=== PATIENT | female | born 1970 | race Caucasian/White ===

== ENCOUNTER → 2018-05-17 | Outpatient (CLI) | payer BC ==
--- NOTE | 2018-05-24 11:11 | MM ---
Reason for exam: screening (asymptomatic). Last mammogram was performed 3 years ago. History: Patient is nulliparous. Family history of breast cancer in paternal grandmother and breast cancer in 2 paternal aunts. MG Screening Mammo w CAD Bilateral CC and MLO view(s) were taken. Prior study comparison: May 18, 2015, bilateral MG screening mammo w CAD. March 02, 2012, bilateral digital screening mammo w/CAD. The breast tissue is heterogeneously dense. This may lower the sensitivity of mammography. No suspicious abnormality. No significant new finding since 2011. ASSESSMENT: Negative, BI-RAD 1 RECOMMENDATION: Routine screening mammogram of both breasts in 1 year.
== END | disposition home or self-care (01) ==
LOC: RADMAMWWP 07:57
PROVIDERS: ATTEND Family Medicine
DX: Z12.31 Encounter for screening mammogram for malignant neoplasm of breast (principal)
CPT/HCPCS: 77067

== ENCOUNTER → 2018-05-29 | Outpatient (CLI) | payer BC ==
--- NOTE | 2018-05-29 08:58 | XR ---
EXAMINATION TYPE: XR Hip Limited RT DATE OF EXAM: 05/29/2018 COMPARISON: NONE HISTORY: Pain TECHNIQUE: 2 views submitted FINDINGS: There is no evidence of erosive change or acute fracture. No erosive changes. IMPRESSION: 1. No evidence of acute fracture or dislocation.
== END | disposition home or self-care (01) ==
LOC: RADXRMAIN 08:22
PROVIDERS: ATTEND Family Medicine
DX: M25.551 Pain in right hip (principal)
CPT/HCPCS: 73501

== ENCOUNTER → 2018-06-08 | Outpatient (CLI) | payer BC ==
--- NOTE | 2018-06-08 09:51 | XR ---
EXAMINATION TYPE: XR ankle complete bilateral DATE OF EXAM: 06/08/2018 COMPARISON: NONE HISTORY: Pain FINDINGS: Three views of the ankle were obtained bilaterally and demonstrate the ankle mortise to be intact and symmetric bilaterally. The joint spaces are preserved. No erosive changes. Mineralization preserve d. The osseous structures are intact. Plantar calcaneal spur noted on the left. IMPRESSION: 1. Left-sided plantar calcaneal spur.
--- NOTE | 2018-06-08 09:53 | XR ---
EXAMINATION TYPE: XR cervical spine comp DATE OF EXAM: 06/08/2018 COMPARISON: NONE HISTORY: Pain TECHNIQUE: Four views are submitted. FINDINGS: The odontoid is intact. There are no compression deformities. The prevertebral soft tissue structur es are within normal limits. There is loss of disc space and hypertrophic spurring C5-6 and C6-C7. F acet arthropathy at levels C4-T1. Foraminal encroachment noted at C4-C7 bilaterally. IMPRESSION: 1. Multilevel degenerative disc disease and spondylosis with bilateral foraminal encroachment level C 4-C7. Follow-up MRI recommended.
--- NOTE | 2018-06-08 10:11 | XR ---
EXAMINATION TYPE: XR wrist complete BILATERAL DATE OF EXAM: 06/08/2018 COMPARISON: NONE HISTORY: Pain TECHNIQUE: Four views submitted bilaterally. FINDINGS: The osseous structures are intact. Mild narrowing of the radiocarpal joint. There is no acute fractur e or dislocation. No erosive changes. IMPRESSION: 1. No definite acute fracture or dislocation if symptoms persist, follow-up study in 7 to 10 days wo uld be suggested
--- NOTE | 2018-06-08 10:13 | XR ---
EXAMINATION TYPE: XR foot complete bilateral DATE OF EXAM: 06/08/2018 COMPARISON: NONE HISTORY: Pain TECHNIQUE: Three views are submitted of each foot. FINDINGS: The osseous structures are intact. There is no acute fracture or dislocation. Joint spaces are p reserved. No erosive changes. IMPRESSION: 1. No acute fracture or dislocation. If symptoms persist, follow-up exam in 7 to 10 days could be ob tained.
--- NOTE | 2018-06-08 10:15 | XR ---
EXAMINATION TYPE: XR hand complete bilateral DATE OF EXAM: 06/08/2018 COMPARISON: NONE HISTORY: Pain TECHNIQUE: Three views are submitted. FINDINGS: The osseous structures are intact. The joint spaces are preserved and there is no acute fracture or dislocation. No erosive changes. Mineralization is preserved. IMPRESSION: 1. No definite acute fracture or dislocation if symptoms persist, follow-up study in 7 to 10 days wo uld be suggested
--- NOTE | 2018-06-08 10:49 | XR ---
EXAM TYPE: LUMBAR SPINE X RAY SERIES COMPARISON: NONE HISTORY: Pain TECHNIQUE: 4 views are submitted. FINDINGS: Alignment is anatomic. The pedicles are intact. The transverse processes are intact and degenerativ e disc disease L4-5 and L5-S1.. Facet arthropathy L4-L5 and L5-S1 with grade 1 anterolisthesis L4 on L5. IMPRESSION: 1. Advanced facet arthropathy lower lumbar spine with grade 1 anterolisthesis L4 on L5. Multilevel de generative disc disease.
--- NOTE | 2018-06-08 10:50 | XR ---
EXAMINATION TYPE: XR pelvis AP view DATE OF EXAM: 06/08/2018 COMPARISON: NONE HISTORY: Pain The osseous structures are intact and the joint spaces are preserved. No acute fracture is seen. Vi sualized bowel gas pattern is nonspecific. Calcifications in the pelvis are noted. There is mild con centric narrowing of the hip joints bilaterally. No erosive changes. Mineralization preserved. SI marck nts symmetric. No erosive changes. IMPRESSION: 1. Mild hip arthropathy with hypertrophic changes involving the lateral margin of acetabulum compatib le mild arthritic changes. Femoral acetabular impingement in the differential diagnosis.
== END | disposition home or self-care (01) ==
LOC: RADXRMAIN 07:10
PROVIDERS: ATTEND Physician Assistant Medical
DX: M77.32 Calcaneal spur, left foot (principal); M43.16 Spondylolisthesis, lumbar region; M51.36 Other intervertebral disc degeneration, lumbar region; M47.812 Spondylosis without myelopathy or radiculopathy, cervical region; M46.96 Unspecified inflammatory spondylopathy, lumbar region; M50.30 Other cervical disc degeneration, unspecified cervical region; M13.0 Polyarthritis, unspecified
CPT/HCPCS: 72050; 72110; 72170

== ENCOUNTER → 2019-05-20 | Outpatient (CLI) | payer BC ==
--- NOTE | 2019-05-21 08:08 | MM ---
Reason for exam: screening (asymptomatic). Last mammogram was performed 1 year ago. History: Patient is nulliparous. Family history of breast cancer in paternal grandmother and breast cancer in 2 paternal aunts. Physical Findings: A clinical breast exam by your physician is recommended on an annual basis and results should be correlated with mammographic findings. MG Screening Mammo w CAD Bilateral CC and MLO view(s) were taken. Prior study comparison: May 17, 2018, bilateral MG screening mammo w CAD. May 18, 2015, bilateral MG screening mammo w CAD. There are scattered fibroglandular densities. There is no discrete abnormality. No significant changes when compared with prior studies. ASSESSMENT: Negative, BI-RAD 1 RECOMMENDATION: Routine screening mammogram of both breasts in 1 year.
== END | disposition home or self-care (01) ==
LOC: RADMAMWWP 07:36
PROVIDERS: ATTEND Family Medicine
DX: Z12.31 Encounter for screening mammogram for malignant neoplasm of breast (principal)
CPT/HCPCS: 77067

== ENCOUNTER → 2020-07-17 | Outpatient (CLI) | payer BC ==
--- NOTE | 2020-07-21 13:42 | MM ---
Reason for exam: screening (asymptomatic). Last mammogram was performed 1 year and 2 months ago. History: Patient is nulliparous. Family history of breast cancer in paternal grandmother and breast cancer in 2 paternal aunts. Physical Findings: A clinical breast exam by your physician is recommended on an annual basis and results should be correlated with mammographic findings. MG Screening Mammo w CAD Bilateral CC and MLO view(s) were taken. Prior study comparison: May 20, 2019, bilateral MG screening mammo w CAD. May 17, 2018, bilateral MG screening mammo w CAD. There are scattered fibroglandular densities. No significant changes when compared with prior studies. ASSESSMENT: Negative, BI-RAD 1 RECOMMENDATION: Routine screening mammogram of both breasts in 1 year.
== END | disposition home or self-care (01) ==
LOC: RADMAMWWP 13:47
PROVIDERS: ATTEND Family Medicine
DX: Z12.31 Encounter for screening mammogram for malignant neoplasm of breast (principal); Z80.3 Family history of malignant neoplasm of breast
CPT/HCPCS: 77067

== ENCOUNTER 2020-12-23 10:45 | Day surgery (SDC) | payer BC ==
[2020-12-21 10:17] VITALS: BMI 31.2
[~2020-12-23 10:45] MED LIST: LACTATED RINGERS 1,000 ML IV SCH; LIDOCAINE 1% (10MG/ML) FOR IV START INTRADERMA PRN
[2020-12-23] MEDS ORDERED: LIDOCAINE 1% (10MG/ML) FOR IV START INTRADERMA ONE (11:44)
[2020-12-23 11:47] VITALS: TEMP 97
[2020-12-23] MEDS ORDERED: PROPOFOL 10 MG/ML 20 ML VIAL IV ONE (12:07)
--- NOTE | 2020-12-23 12:18 | P.PCN ---
Date of Procedure: 12/23/20 Procedure(s) Performed: BRIEF HISTORY: Patient is a 50-year-old pleasant white female scheduled for an elective colonoscopy as a part of evaluation of positive cploguard. PROCEDURE PERFORMED: Colonoscopy. PREOPERATIVE DIAGNOSIS: Positive cologuard. IV sedation per Anesthesia. PROCEDURE: After informed consent was obtained, the patient, was brought into the endoscopy unit. IV sedation was administered by Anesthesia under continuous monitoring. Digital rectal examination was normal. Initially the Olympus CF-160 flexible video colonoscope was then inserted in the rectum, gradually advanced into the cecum without any difficulty. Careful examination was performed as the scope was gradually being withdrawn. Ileocecal valve and the appendiceal orifice were visualized and appeared normal. Prep was excellent. Mucosa of the cecum, ascending colon, transverse colon, descending colon, sigmoid colon, and rectum appeared normal. Retroflexion was performed in the rectum and no lesions were seen. The patient tolerated the procedure well. IMPRESSION: Normal-appearing colon from rectum to cecum no evidence of colorectal neoplasia. RECOMMENDATIONS: Findings of this examination were discussed with the patient as well as a family. She was advised to have a repeat screening colonoscopy in 10 years
[2020-12-23 12:48] VITALS: RESP 16
[2020-12-23 12:50] VITALS: BP 112/78; PULSE 87
== END 2020-12-23 13:00 | disposition home or self-care (01) ==
LOC: ORWHC2ENDO 10:45
PROVIDERS: ATTEND Internal Medicine Gastroenterology
DX: R19.5 Other fecal abnormalities (principal); F41.9 Anxiety disorder, unspecified; Z88.2 Allergy status to sulfonamides
CPT/HCPCS: 81025; 45378; J2704

== ENCOUNTER → 2021-08-24 | Outpatient (CLI) | payer BC ==
--- NOTE | 2021-08-24 12:19 | BD ---
EXAMINATION TYPE: Axial Bone Density DATE OF EXAM: 08/24/2021 COMPARISON: NONE CLINICAL HISTORY: Postmenopausal female Height: 4 FT 1O 1/4 IN Weight: 166 FRAX RISK QUESTIONS: Alcohol (3 or more units per day): NO Family History (Parent hip fracture): NO Glucocorticoids (More than 3mos): NO (Ex: prednisone, prednisolone, methylprednisolone, dexamethasone, and hydrocortisone). History of Fracture in Adulthood: NO Secondary Osteoporosis: 1. Type 1 Diabetes: NO 2. Hyperthyroidism: NO 3. Menopause before 45: NO 4. Malnutrition: NO 5. Chronic liver disease: NO Rheumatoid Arthritis: NO Current Tobacco Use: NO RISK FACTORS HISTORY OF: Surgery to Spine/Hip(right/left)/Wrist (right/left): NO Family History of Osteoporosis: YES Active: YES Diet low in dairy products/other sources of calcium: NO Postmenopausal woman: If Premenopausal, do you have irregular periods: LMP SUMMER 2020 STILL SPOTTING ON OCCASION Take estrogen and/or progesterone medications: NO Lost more than 2 inches in height since high school: NO Frequent falls: NO Poor Health: GOOD Hyperparathyroidism: NO Adrenal Insufficiency: NO MEDICATIONS: Additional Medications: NONE Additional History: EXAM MEASUREMENTS: Bone mineral densitometry was performed using the [employer] System. Bone mineral density as measured about the Lumbar spine is: ----- L1-L4(G/cm2): 1.171 T Score Values are as follows: ----- L2: -0.4 ----- L3: -0.5 ----- L4: 0.4 ----- L1-L4: -0.1 BASELINE Bone mineral density about the R hip (g/cm2): 0.938 Bone mineral density about the L hip (g/cm2): 0.948 T Score values are as follows: -----R Neck: -0.7 -----L Neck: -0.6 -----R Total: 0.0 -----L Total: 0.0 BASELINE IMPRESSION: Normal (Values between +1 and -1 indicate normal bone mass). Consider repeating this study in 5 year s or sooner if there is some new clinical indication. NOTE: T-SCORE=SD OF THE YOUNG ADULT MEAN.
--- NOTE | 2021-08-25 11:04 | MM ---
Reason for exam: screening (asymptomatic). Last mammogram was performed 1 year and 1 month ago. History: Patient is nulliparous. Family history of breast cancer in paternal grandmother and breast cancer in 2 paternal aunts. Physical Findings: A clinical breast exam by your physician is recommended on an annual basis and results should be correlated with mammographic findings. MG Screening Mammo w CAD Bilateral CC and MLO view(s) were taken. Prior study comparison: July 17, 2020, bilateral MG screening mammo w CAD. May 20, 2019, bilateral MG screening mammo w CAD. There are scattered fibroglandular densities. There is no discrete abnormality. ASSESSMENT: Negative, BI-RAD 1 RECOMMENDATION: Routine screening mammogram of both breasts in 1 year.
== END | disposition home or self-care (01) ==
LOC: RADMAMWWP 08:16
PROVIDERS: ATTEND Family Medicine
DX: Z12.31 Encounter for screening mammogram for malignant neoplasm of breast (principal); Z80.3 Family history of malignant neoplasm of breast; Z78.0 Asymptomatic menopausal state
CPT/HCPCS: 77067; 77080

== ENCOUNTER → 2022-08-25 | Outpatient (CLI) | payer BC ==
--- NOTE | 2022-08-25 09:27 | MM ---
Reason for Exam: Screening (asymptomatic). Last screening mammogram was performed 12 month(s) ago. Patient History: Menarche at age 12. Patient has no children. Paternal grandmother had breast cancer. Paternal aunt had breast cancer. Paternal aunt had breast cancer. Last menstrual period: 08/17/2022 Risk Values: Tonya 5 year model risk: 1.2%. NCI Lifetime model risk: 9.6%. Prior Study Comparison: 05/20/2019 Bilateral Screening Mammogram, [facility]. 07/17/2020 Bilateral Screening Mammogram, [facility]. 08/24/2021 Bilateral Screening Mammogram, [facility]. Tissue Density: There are scattered fibroglandular densities. Findings: Analyzed By CAD. There is no suspicious group of microcalcifications or new suspicious mass in either breast. No significant change from prior exams. Overall Assessment: Negative, BI-RAD 1 Management: Screening Mammogram of both breasts in 1 year. A clinical breast exam by your physician is recommended on an annual basis and results should be correlated with mammographic findings. Electronically signed and approved by: Dev Moreno D.O.
== END | disposition home or self-care (01) ==
LOC: RADMAMWWP 06:56
PROVIDERS: ATTEND Family Medicine
DX: Z12.31 Encounter for screening mammogram for malignant neoplasm of breast (principal); Z80.3 Family history of malignant neoplasm of breast
CPT/HCPCS: 77067

== ENCOUNTER → 2023-05-25 | Outpatient (CLI) | payer BC ==
--- NOTE | 2023-05-25 13:47 | CT ---
EXAMINATION TYPE: CT abdomen pelvis wo con CT DLP: 813 mGycm, Automated exposure control for dose reduction was used. DATE OF EXAM: 05/25/2023 1:16 PM COMPARISON : none CLINICAL INDICATION:Female, 52 years old with history of R31.9 Hematuria; possible Hematuria, patient states possible diverticulitis, pre menopausal symptoms, possible spotting. Patient states she is no t TECHNIQUE: Standard CT of the abdomen and pelvis without IV or oral contrast. Lack of IV or oral co ntrast limits evaluation of solid and hollow organ viscera. Coronal and sagittal reformats were perfo rmed. FINDINGS: Evaluation is limited due to lack of intravenous and oral contrast. LOWER CHEST: Linear atelectasis within the bilateral lung bases. Elevation the right hemidiaphragm. ABDOMEN LIVER: Unremarkable noncontrast appearance GALLBLADDER AND BILE DUCTS: Unremarkable noncontrast appearance PANCREAS: Unremarkable noncontrast appearance SPLEEN: Unremarkable noncontrast appearance ADRENAL GLANDS: Unremarkable noncontrast appearance. KIDNEYS AND URETERS: No evidence of hydronephrosis or renal calculus. The ureters are unremarkable. PELVIS BLADDER: Unremarkable REPRODUCTIVE: : Unremarkable anteverted uterus. Right ovarian 3.0 cm cystic lesion. ABDOMEN & PELVIS STOMACH AND BOWEL: Stomach and duodenum are unremarkable. No focal bowel wall thickening or surroundi ng inflammatory changes. No diverticula identified. The appendix is within normal limits. No evidence of bowel obstruction. PERITONEUM: No evidence of pneumoperitoneum or free fluid. VASCULATURE: No evidence of aortic aneurysm. Multiple pelvic phleboliths. MUSCULOSKELETAL: No acute osseous abnormalities. Grade 1 anterolisthesis of L4 on L5 without evidence of pars defects. Mild to moderate degenerative disc disease at L4-L5 and L5-S1. LYMPH NODES: No gross evidence for lymphadenopathy. SOFT TISSUE/ABDOMINAL WALL: Unremarkable IMPRESSION: 1. No acute abdominal/pelvic process. No evidence for obstructive uropathy or nephrolithiasis. 2. Right ovarian 3.0 cm cystic lesion which probably represents a follicular cyst. This can be furthe r evaluated with pelvic ultrasound as clinically indicated.
== END | disposition home or self-care (01) ==
LOC: RADCTMAIN 12:50
PROVIDERS: ATTEND Family Medicine
DX: N83.201 Unspecified ovarian cyst, right side (principal); R31.9 Hematuria, unspecified
CPT/HCPCS: 74176

== ENCOUNTER → 2023-06-06 | Outpatient (CLI) | payer BC ==
--- NOTE | 2023-06-07 10:09 | MM ---
Reason for Exam: Clinical finding. Last screening mammogram was performed 9 month(s) ago. Patient History: Menarche at age 12. Patient has no children. Paternal grandmother had breast cancer. Paternal aunt had breast cancer. Paternal aunt had breast cancer. Risk Values: Tonya 5 year model risk: 1.2%. NCI Lifetime model risk: 9.4%. Prior Study Comparison: 04/27/2001 Screening Mammogram, [facility]. 07/17/2020 Bilateral Screening Mammogram, [facility]. 08/24/2021 Bilateral Screening Mammogram, [facility]. 08/25/2022 Bilateral MG screening mammo w CAD, [facility]. Tissue Density: Left: The breast tissue is heterogeneously dense. This may lower the sensitivity of mammography. Findings: Analyzed By CAD. No discrete abnormality including area of concern. Overall Assessment: Incomplete: need additional imaging evaluation, BI-RAD 0 Management: Diagnostic Breast Ultrasound of the left breast. A clinical breast exam by your physician is recommended on an annual basis and results should be correlated with mammographic findings. This exam should not preclude additional follow-up of suspicious palpable abnormalities. Results were given to the patient verbally at the time of exam. Electronically signed and approved by: James Nettles M.D. Radiologis
--- NOTE | 2023-06-07 10:09 | USB ---
Reason for Exam: Clinical finding. Patient History: Menarche at age 12. Patient has no children. Paternal grandmother had breast cancer. Paternal aunt had breast cancer. Paternal aunt had breast cancer. Risk Values: Tonya 5 year model risk: 1.2%. NCI Lifetime model risk: 9.4%. Technique: Method: Targeted. Prior Study Comparison: 07/17/2020 Bilateral Screening Mammogram, [facility]. 08/24/2021 Bilateral Screening Mammogram, [facility]. 08/25/2022 Bilateral MG screening mammo w CAD, [facility]. Findings: The area of palpable concern of the left breast was scanned. Left breast ultrasound demonstrates a 0.6 x 0.3 x 0.5cm hyperechoic lesion, questionable lipoma at 4 o'clock, 12cm from the nipple. Overall Assessment: Benign, BI-RAD 2 Management: Return to routine follow-up (next follow-up: 08/25/2023 for Screening Mammogram) A clinical breast exam by your physician is recommended on an annual basis and results should be correlated with mammographic findings. This exam should not preclude additional follow-up of suspicious palpable abnormalities. Results were given to the patient verbally at the time of exam. Electronically signed and approved by: James Nettles M.D. Radiologis
== END | disposition home or self-care (01) ==
LOC: RADMAMWWP 08:58
PROVIDERS: ATTEND Family Medicine
DX: N63.23 Unspecified lump in the left breast, lower outer quadrant (principal); Z80.3 Family history of malignant neoplasm of breast
CPT/HCPCS: 77061; 77065

== ENCOUNTER → 2023-06-29 | Outpatient (CLI) | payer BC ==
--- NOTE | 2023-06-29 10:42 | US ---
EXAMINATION TYPE: US transvaginal DATE OF EXAM: 06/29/2023 COMPARISON: CLINICAL INDICATION: Female, 52 years old with history of N83.201 OVARIAN CYST; hx ro cyst. Spotting. TECHNIQUE: Transvaginal (TV) Date of LMP: Unknown, G0 EXAM MEASUREMENTS: Uterus: 6.9 x 4.4 x 3.6 cm Endometrial Stripe: 1.6 cm Right Ovary: 3.0 x 2.3 x 1.7 cm Left Ovary: 1.9 x 1.3 x 1.0 cm 1. Uterus: Anteverted Isoechoic lesion in CAREN = 1.3 x 1.2 x 1.3 cm. Anechoic lesion in mid fundal region = 0.6 x 0.6 x 0.3 cm 2. Endometrium: Appears thickened 3. Right Ovary: dominant follicle 4. Left Ovary: wnl 5. Bilateral Adnexa: wnl 6. Posterior cul-de-sac: no free fluid IMPRESSION: Probable leiomyomatous change. Thickened endometrium.
== END | disposition home or self-care (01) ==
LOC: RADUSWWP 08:48
PROVIDERS: ATTEND Family Medicine
DX: N83.201 Unspecified ovarian cyst, right side (principal); R93.89 Abnormal findings on diagnostic imaging of other specified body structures
CPT/HCPCS: 76830

== ENCOUNTER → 2023-08-28 | Outpatient (CLI) | payer BC ==
--- NOTE | 2023-08-28 09:10 | MM ---
Reason for Exam: Screening (asymptomatic). Last screening mammogram was performed 12 month(s) ago. Patient History: Menarche at age 12. Patient has no children. Paternal grandmother had breast cancer. Paternal aunt had breast cancer. Paternal aunt had breast cancer. Risk Values: Tonya 5 year model risk: 1.2%. NCI Lifetime model risk: 9.4%. Prior Study Comparison: 08/24/2021 Bilateral Screening Mammogram, [facility]. 08/25/2022 Bilateral MG screening mammo w CAD, [facility]. 06/06/2023 Left MG 3D diag mammo w/cad LT, [facility]. Tissue Density: There are scattered fibroglandular densities. Findings: Analyzed By CAD. There is no suspicious group of microcalcifications or new suspicious mass. Overall Assessment: Negative, BI-RAD 1 Management: Screening Mammogram of both breasts in [address] [facility] will attempt to contact patient to return for supplemental views and ultrasound if indicated. Patient should continue monthly self-breast exams. A clinical breast exam by your physician is recommended on an annual basis. This exam should not preclude additional follow-up of suspicious palpable abnormalities. Note on Tonya scores and lifetime risk: 1. A Tonya score greater than 3% is considered moderate risk. If this is the case, consider specialist referral to assess eligibility for a risk reducing agent. 2. If overall lifetime risk for the development of breast cancer is 20% or higher, the patient may qualify for future screening with alternating mammogram and breast MRI. Electronically signed and approved by: Herminio Montero DO
== END | disposition home or self-care (01) ==
LOC: RADMAMWWP 07:17
PROVIDERS: ATTEND Family Medicine
DX: Z12.31 Encounter for screening mammogram for malignant neoplasm of breast (principal); Z80.3 Family history of malignant neoplasm of breast
CPT/HCPCS: 77067

== ENCOUNTER → 2023-11-03 | Outpatient (CLI) | payer BC ==
--- NOTE | 2023-11-03 19:50 | US ---
EXAMINATION TYPE: US transvaginal DATE OF EXAM: 11/03/2023 COMPARISON: CLINICAL INDICATION: Female, 52 years old with history of N85.00 ENDOMETRIAL HYPERPLASIA, UNSPECIFIED ; Follow up thickened endometrium, finished spotting in September 2023 TECHNIQUE: Transvaginal (TV) Date of LMP: Unknown, G0 EXAM MEASUREMENTS: Uterus: 6.5 x 4.1 x 3.3 cm Endometrial Stripe: 1.5 cm Right Ovary: 1.7 x 1.2 x 0.8 cm Left Ovary: 2.8 x 1.9 x 1.6 cm 1. Uterus: Anteverted Slightly heterogenous. Right hypoechoic lesion = 1.8 x 1.6 x 1.2 cm. 2. Endometrium: Appears heterogenous and thickened. Anechoic area seen = 0.3 x 0.3 x 0.3 cm. 3. Right Ovary: wnl 4. Left Ovary: Dominant follicle = 1.8 cm 5. Bilateral Adnexa: wnl 6. Posterior cul-de-sac: no free fluid Cervix- trace fluid seen in cervical canal IMPRESSION: 1. Tiny cystlike area may be within the uterus. Follow-up is recommended. 2. Thickened endometrium
== END | disposition home or self-care (01) ==
LOC: RADUSWWP 16:46
PROVIDERS: ATTEND Family Medicine
DX: R93.89 Abnormal findings on diagnostic imaging of other specified body structures (principal); N85.00 Endometrial hyperplasia, unspecified
CPT/HCPCS: 76830

== ENCOUNTER → 2024-07-15 | Outpatient (CLI) | payer BC ==
--- NOTE | 2024-07-15 10:48 | BD ---
EXAMINATION TYPE: Axial Bone Density DATE OF EXAM: 07/15/2024 CLINICAL HISTORY: 53 years old Female. ICD-10 CODE: N95.9 UNSPECIFIED MENOPAUSAL AND PERIMENOPAUSAL DI Height: 57.8in Weight: 164lb FRAX RISK QUESTIONS: Secondary Osteoporosis: RISK FACTORS HISTORY OF: MEDICATIONS: EXAM MEASUREMENTS: Bone mineral densitometry was performed using the [employer] System. Bone mineral density as measured about the Lumbar spine is: ----- L1-L4(G/cm2): 0.999 T Score Values are as follows: ----- L1: -1.7 ----- L2: -2.2 ----- L3: -1.0 ----- L4: -1.5 ----- L1-L4: -1.5 Z Score Values are as follows: ----- L1: -1.3 ----- L2: -1.7 ----- L3: -0.5 ----- L4: -1.0 ----- L1-L4: -1.1 Bone mineral density has: Decreased -14.7% since study of: 08-24-21 Bone mineral density about the R hip (g/cm2): 0.949 Bone mineral density about the L hip (g/cm2): 0.942 T Score values are as follows: -----R Neck: -1.4 -----L Neck: -1.4 -----R Total: -0.5 -----L Total: -0.5 Z Score values are as follows: -----R Neck: -0.7 -----L Neck: -0.6 -----R Total: -0.1 -----L Total: -0.1 Bone mineral density has: Decreased -6.2% since study of: 08-24-21 FRAX%s: The graph provided illustrates a 5.9% chance for a major osteoporotic fx and a 0.4% chance fo r the hips probability for fx in 10 years time. IMPRESSION: Osteopenia (T Score between -2.5 and -1). There is slightly increased risk of fracture and the patient may be considered for treatment. Re-Screen 2-5 years. NOTE: T-SCORE=SD OF THE YOUNG ADULT MEAN. [facility], , 07/15/2024 10:46 AM
== END | disposition home or self-care (01) ==
LOC: RADBDWWP 07:01
PROVIDERS: ATTEND Family Medicine
DX: N95.9 Unspecified menopausal and perimenopausal disorder
CPT/HCPCS: 77080

== ENCOUNTER → 2024-08-29 | Outpatient (CLI) | payer BC ==
--- NOTE | 2024-08-30 08:37 | MM ---
Reason for Exam: Screening (asymptomatic). Last screening mammogram was performed 12 month(s) ago. Patient History: Menarche at age 12. Patient has no children. Paternal grandmother had breast cancer. Paternal aunt had breast cancer. Paternal aunt had breast cancer. Risk Values: Tonya 5 year model risk: 1.3%. NCI Lifetime model risk: 9.3%. Prior Study Comparison: 08/25/2022 Bilateral MG screening mammo w CAD, [facility]. 06/06/2023 Left MG 3D diag mammo w/cad , [facility]. 08/28/2023 Bilateral MG screening mammo w CAD, [facility]. Tissue Density: There are scattered areas of fibroglandular density. Findings: Analyzed By CAD. There is no suspicious group of microcalcifications or new suspicious mass in either breast. Overall Assessment: Negative, BI-RAD 1 Management: Screening Mammogram of both breasts in 1 year. . Patient should continue monthly self-breast exams. A clinical breast exam by your physician is recommended on an annual basis. This exam should not preclude additional follow-up of suspicious palpable abnormalities. Note on Tonya scores and lifetime risk: 1. A Tonya score greater than 3% is considered moderate risk. If this is the case, consider specialist referral to assess eligibility for a risk reducing agent. 2. If overall lifetime risk for the development of breast cancer is 20% or higher, the patient may qualify for future screening with alternating mammogram and breast MRI. [facility], , 08/30/2024 8:34 AM. Electronically signed and approved by: James Nettles M.D. Radiologis
== END | disposition home or self-care (01) ==
LOC: RADMAMWWP 07:37
PROVIDERS: ATTEND Family Medicine
DX: Z12.31 Encounter for screening mammogram for malignant neoplasm of breast (principal); Z80.3 Family history of malignant neoplasm of breast; R92.323 Mammographic fibroglandular density, bilateral breasts
CPT/HCPCS: 77067